=== PATIENT | female | born 1940 | race Caucasian/White ===

== ENCOUNTER 2017-02-14 09:29 | Emergency (ER) | payer OTHER ==
[~2017-02-14] VITALS: Ht 160 cm; Wt 57.7 kg
[~2017-02-14 09:29] MED LIST: ENULOSE10 GM/15 M PO; MACROBID100 MG PO
[2017-02-14 10:38] LABS: EOSINOPHIL (%) 1.6 % (0-5); EOSINOPHIL COUNT 0.1 K/uL (0-0.3); HEMATOCRIT 36.2 % (36.0-46.0); IMMATURE GRANULOCYTE (%) 0.3 % (0.0-0.7); INSTRUMENT ABS NEUTROPHIL CT 5.1 K/uL; LYMPHOCYTE COUNT 0.6 K/uL (1.0-2.8); MCH 29.5 PG (29.0-34.0); MCV 92.1 FL (83-99); MEAN PLAT.VOLUME 9.5 uM^3 (9.5-12.4); MONOCYTE COUNT 0.4 K/uL (0-0.8); NEUTROPHIL (%) 82.6 % (45-76); NEUTROPHIL COUNT 5.1 K/uL (1.8-6.4); PLATELET COUNT 238 K/uL (156-360); RBC DIS.WIDTH-CV 13.2 % (11.8-14.6); RBC DIS.WIDTH-SD 43.9 % (39-53); RED BLOOD COUNT 3.93 M/uL (3.80-5.20); WHITE BLOOD COUNT 6.2 K/uL (4.1-10.2)
[2017-02-14 10:47] LABS: CHLORIDE 105 mEq/L (99-109); POTASSIUM 4.4 mEq/L (3.7-5.4); PROTHROMBIN TIME 10.6 (9.2-11.2); PTT 27.8 (25-32); SODIUM 139 mEq/L (136-147)
[2017-02-14 10:48] LABS: GLUCOSE 106 mg/dL (70-99)
[2017-02-14 10:50] LABS: ANION GAP 11 MEQ/L (2-14)
[2017-02-14 10:52] LABS: GFR ESTIMATE (CALCULATED) 39 mL/min/
[2017-02-14 10:53] LABS: UREA NITROGEN (BUN) 29 mg/dL (9-23)
[2017-02-14 10:58] LABS: TROP-I INTERPRETATION NEGATIVE; TROPONIN-I < 0.01 ng/mL (0.0-0.30)
[2017-02-14 14:08] LABS: ADD MIUA? NO; BILIRUBIN NEGATIVE; BLOOD NEGATIVE; COLOR YELLOW ((YELLOW)); GLUCOSE (STRIP) NEGATIVE; KETONES NEGATIVE; LEUKOCYTES NEGATIVE; NITRITE NEGATIVE; PROTEIN (STRIP) NEGATIVE; SPECIFIC GRAVITY 1.013 (1.000-1.030); UCUL ADDED? NO; UROBILINOGEN 0.2 MG/DL (0.2-1.0)
[2017-02-14 15:13] VITALS: BP 142/70
== END 2017-02-14 15:15 ==
LOC: EME 09:29
PROVIDERS: Emergency Medicine
DX: R56.9 Unspecified convulsions (principal); F31.9 Bipolar disorder, unspecified; F41.9 Anxiety disorder, unspecified; E78.5 Hyperlipidemia, unspecified; I10 Essential (primary) hypertension; F03.90 Unspecified dementia, unspecified severity, without behavioral disturbance, psychotic disturbance, mood disturbance, and anxiety; R06.02 Shortness of breath
CPT/HCPCS: 70450; 71010; 80048; 81003; 84484; 85025; 85610; 85730; 93005; 99281; 99284